=== PATIENT | female | born 1990 | race Caucasian/White ===

== ENCOUNTER → 2024-03-31 16:22 | Outpatient (REF) | payer BC, SELFPAY | LOC: PNTC 16:22 | PROVIDERS: ATTENDING PHYSICIAN Student in an Organized Health Care Education/Training Program | DX: Z36.0 Encounter for antenatal screening for chromosomal anomalies (principal); Z36.82 Encounter for antenatal screening for nuchal translucency | CPT/HCPCS: 76801; 76813 ==

== ENCOUNTER → 2024-04-26 15:57 | Outpatient (REF) | payer BC, SELFPAY | LOC: PNTC 15:57 | PROVIDERS: ATTENDING PHYSICIAN Student in an Organized Health Care Education/Training Program | DX: O09.819 Supervision of pregnancy resulting from assisted reproductive technology, unspecified trimester (principal); O10.119 Pre-existing hypertensive heart disease complicating pregnancy, unspecified trimester | CPT/HCPCS: 76805 ==

== ENCOUNTER → 2024-05-26 15:53 | Outpatient (REF) | payer BC, SELFPAY | LOC: PNTC 15:53 | PROVIDERS: ATTENDING PHYSICIAN Student in an Organized Health Care Education/Training Program | DX: O09.812 Supervision of pregnancy resulting from assisted reproductive technology, second trimester (principal); O10.012 Pre-existing essential hypertension complicating pregnancy, second trimester; O99.212 Obesity complicating pregnancy, second trimester; O35.5XX0 Maternal care for (suspected) damage to fetus by drugs, not applicable or unspecified; O99.282 Endocrine, nutritional and metabolic diseases complicating pregnancy, second trimester | CPT/HCPCS: 76811; 76817 ==

== ENCOUNTER → 2024-06-23 16:58 | Outpatient (REF) | payer BC, SELFPAY | LOC: PNTC 16:58 | PROVIDERS: ATTENDING PHYSICIAN Student in an Organized Health Care Education/Training Program | DX: O09.812 Supervision of pregnancy resulting from assisted reproductive technology, second trimester (principal); O10.012 Pre-existing essential hypertension complicating pregnancy, second trimester; O99.212 Obesity complicating pregnancy, second trimester; O35.5XX0 Maternal care for (suspected) damage to fetus by drugs, not applicable or unspecified; O99.282 Endocrine, nutritional and metabolic diseases complicating pregnancy, second trimester | CPT/HCPCS: 76816 ==

== ENCOUNTER → 2024-07-19 10:20 | Outpatient (REF) | payer BC, SELFPAY | LOC: PNTC 10:20 | PROVIDERS: ATTENDING PHYSICIAN Obstetrics & Gynecology | DX: O99.210 Obesity complicating pregnancy, unspecified trimester (principal); O09.819 Supervision of pregnancy resulting from assisted reproductive technology, unspecified trimester; O10.31 Pre-existing hypertensive heart and chronic kidney disease complicating pregnancy; O99.280 Endocrine, nutritional and metabolic diseases complicating pregnancy, unspecified trimester; O99.320 Drug use complicating pregnancy, unspecified trimester | CPT/HCPCS: 59025; 76816 ==

== ENCOUNTER → 2024-07-20 15:05 | Outpatient (REF) | payer BC, SELFPAY | LOC: PNTC 15:05 | PROVIDERS: ATTENDING PHYSICIAN Obstetrics & Gynecology | DX: Z34.92 Encounter for supervision of normal pregnancy, unspecified, second trimester (principal) | CPT/HCPCS: 36415; 86850; 86900; 86901; 96372; J2790 ==

== ENCOUNTER 2024-07-27 21:19 | Observation (INO) | payer BC, SELFPAY ==
[2024-07-27 21:39] VITALS: BP 128/77; BMI 39.7
[2024-07-27 22:32] LABS: Urine Albumin Negative (Neg - Trace); Urine Bilirubin Negative (Negative); Urine Character Clear (Clear); Urine Color Yellow; Urine Glucose Negative (Negative); Urine Ketone Negative (Negative); Urine Leukocyte Negative (Negative); Urine Nitrite Negative (Negative); Urine Occult Blood Negative (Negative); Urine Specific Gravity 1.005 (<1.030); Urine Urobilinogen Negative (Neg - 1+)
== END 2024-07-27 23:01 | disposition home or self-care (01) ==
LOC: LDRP 21:19
PROVIDERS: ADMITTING PHYSICIAN Obstetrics & Gynecology
DX: O26.893 Other specified pregnancy related conditions, third trimester (principal); Z3A.29 29 weeks gestation of pregnancy; R10.9 Unspecified abdominal pain
CPT/HCPCS: 81003; 87086; G0378

== ENCOUNTER → 2024-08-09 09:48 | Outpatient (REF) | payer BC, SELFPAY | LOC: PNTC 09:48 | PROVIDERS: ATTENDING PHYSICIAN Obstetrics & Gynecology | DX: O99.210 Obesity complicating pregnancy, unspecified trimester (principal); O09.819 Supervision of pregnancy resulting from assisted reproductive technology, unspecified trimester; O10.019 Pre-existing essential hypertension complicating pregnancy, unspecified trimester; O99.280 Endocrine, nutritional and metabolic diseases complicating pregnancy, unspecified trimester; O99.320 Drug use complicating pregnancy, unspecified trimester | CPT/HCPCS: 76816 ==

== ENCOUNTER 2024-08-17 16:16 | Observation (INO) | payer BC, SELFPAY ==
[2024-08-17 16:43] LABS: Hematocrit 36.1 % (37.0-47.0); Hemoglobin 12.6 g/dL (12.0-16.0); Mean Corp Hgb Conc. 34.9 g/dL (33.0-37.0); Mean Corpuscular Volume 80.8 fL (81.0-99.0); Platelet Count 263 10^3/uL (130-400); Red Cell Dist. Width 14.6 % (11.5-14.5)
[2024-08-17 16:44] LABS: Urine Character Clear (Clear)
[2024-08-17 16:52] LABS: Urine Red Blood Cell 0-2 /HPF (0-2)
[2024-08-17 17:01] LABS: ALT (SGPT) 35 U/L (0-35); AST (SGOT) 25 U/L (14-36); Albumin 3.6 g/dl (3.5-5.0); Alkaline Phosphatase 120 U/L (38-126); Blood Urea Nitrogen 9 mg/dl (7-17); Calcium 9.9 mg/dl (8.4-10.2); Carbon Dioxide 22 mmol/L (22-30); Chloride 109 mmol/L (98-107); Glucose 92 mg/dl (70-99); Potassium 4.0 mmol/L (3.5-5.1); Sodium 136 mmol/L (135-145); Total Protein 6.5 g/dl (6.3-8.2); eGFR > 60.00
== END 2024-08-17 17:15 | disposition home or self-care (01) ==
LOC: PNTC-IN 16:16
PROVIDERS: ADMITTING PHYSICIAN Obstetrics & Gynecology; ATTENDING PHYSICIAN Obstetrics & Gynecology
DX: O99.210 Obesity complicating pregnancy, unspecified trimester (principal); O10.019 Pre-existing essential hypertension complicating pregnancy, unspecified trimester; Z31.83 Encounter for assisted reproductive fertility procedure cycle; E03.9 Hypothyroidism, unspecified
CPT/HCPCS: 59025; 80053; 81003; 81015; 82570; 84156; 85027; G0378

== ENCOUNTER 2024-08-24 15:05 | Observation (INO) | payer BC, SELFPAY ==
[2024-08-24 16:40] VITALS: BP 144/91; BMI 40.8
[2024-08-24 16:41] LABS: Hematocrit 36.1 % (37.0-47.0); Hemoglobin 12.7 g/dL (12.0-16.0); Mean Corp Hgb Conc. 35.2 g/dL (33.0-37.0); Mean Corpuscular Volume 80.4 fL (81.0-99.0); Platelet Count 252 10^3/uL (130-400); Red Cell Dist. Width 14.9 % (11.5-14.5)
[2024-08-24 16:58] LABS: ALT (SGPT) 35 U/L (0-35); AST (SGOT) 27 U/L (14-36); Albumin 3.6 g/dl (3.5-5.0); Alkaline Phosphatase 133 U/L (38-126); Blood Urea Nitrogen 9 mg/dl (7-17); Calcium 9.9 mg/dl (8.4-10.2); Carbon Dioxide 21 mmol/L (22-30); Chloride 107 mmol/L (98-107); Estimated Creatinine Clearance > 125 ml/min; Glucose 94 mg/dl (70-99); Potassium 3.9 mmol/L (3.5-5.1); Sodium 133 mmol/L (135-145); Total Protein 6.6 g/dl (6.3-8.2); eGFR > 60.00
== END 2024-08-24 17:30 | disposition home or self-care (01) ==
LOC: PNTC-IN 15:05
PROVIDERS: ADMITTING PHYSICIAN Student in an Organized Health Care Education/Training Program
DX: O10.913 Unspecified pre-existing hypertension complicating pregnancy, third trimester (principal); Z3A.33 33 weeks gestation of pregnancy
CPT/HCPCS: 59025; 76815; 80053; 82570; 84156; 85027; G0378

== ENCOUNTER → 2024-08-26 08:27 | Outpatient (REF) | payer BC, SELFPAY | LOC: PNTC 08:27 | PROVIDERS: ATTENDING PHYSICIAN Obstetrics & Gynecology | DX: O14.90 Unspecified pre-eclampsia, unspecified trimester (principal) | CPT/HCPCS: 59025 ==

== ENCOUNTER 2024-08-29 22:06 | Observation (INO) | payer BC, SELFPAY ==
[2024-08-29 22:33] VITALS: BP 142/92; BMI 40.8
== END 2024-08-30 00:25 | disposition home or self-care (01) ==
LOC: LDRP 22:06
PROVIDERS: ADMITTING PHYSICIAN Obstetrics & Gynecology
DX: O36.8130 Decreased fetal movements, third trimester, not applicable or unspecified (principal); O99.283 Endocrine, nutritional and metabolic diseases complicating pregnancy, third trimester; E03.9 Hypothyroidism, unspecified; O10.013 Pre-existing essential hypertension complicating pregnancy, third trimester; Z3A.34 34 weeks gestation of pregnancy
CPT/HCPCS: 76815; G0378

== ENCOUNTER → 2024-08-30 17:01 | Outpatient (REF) | payer BC, SELFPAY | LOC: PNTC 17:01 | PROVIDERS: ATTENDING PHYSICIAN Obstetrics & Gynecology | DX: O14.00 Mild to moderate pre-eclampsia, unspecified trimester (principal) | CPT/HCPCS: 59025; 76816; 76818 ==

== ENCOUNTER → 2024-09-02 09:27 | Outpatient (REF) | payer BC, SELFPAY | LOC: PNTC 09:27 | PROVIDERS: ATTENDING PHYSICIAN Obstetrics & Gynecology | DX: O13.9 Gestational [pregnancy-induced] hypertension without significant proteinuria, unspecified trimester (principal) | CPT/HCPCS: 59025 ==

== ENCOUNTER → 2024-09-06 10:49 | Outpatient (REF) | payer BC, SELFPAY | LOC: PNTC 10:49 | PROVIDERS: ATTENDING PHYSICIAN Student in an Organized Health Care Education/Training Program | DX: O14.90 Unspecified pre-eclampsia, unspecified trimester (principal) | CPT/HCPCS: 59025 ==

== ENCOUNTER 2024-09-07 14:44 | Observation (INO) | payer BC, SELFPAY ==
[2024-09-07 15:14] VITALS: BP 135/87; BMI 40.8
[2024-09-07 15:20] LABS: Hematocrit 37.4 % (37.0-47.0); Hemoglobin 12.9 g/dL (12.0-16.0); Mean Corp Hgb Conc. 34.5 g/dL (33.0-37.0); Mean Corpuscular Volume 81.1 fL (81.0-99.0); Platelet Count 275 10^3/uL (130-400); Red Cell Dist. Width 14.8 % (11.5-14.5)
[2024-09-07 15:42] LABS: ALT (SGPT) 34 U/L (0-35); AST (SGOT) 24 U/L (14-36); Albumin 3.5 g/dl (3.5-5.0); Alkaline Phosphatase 156 U/L (38-126); Blood Urea Nitrogen 10 mg/dl (7-17); Calcium 9.3 mg/dl (8.4-10.2); Carbon Dioxide 21 mmol/L (22-30); Chloride 107 mmol/L (98-107); Estimated Creatinine Clearance > 125 ml/min; Glucose 96 mg/dl (70-99); Potassium 4.5 mmol/L (3.5-5.1); Sodium 132 mmol/L (135-145); Total Protein 6.5 g/dl (6.3-8.2); eGFR > 60.00
[2024-09-07 15:42] LABS: Urine Character Clear (Clear)
[2024-09-07 16:17] LABS: Urine Squamous Cell >30 /LPF (Few)
== END 2024-09-07 17:00 | disposition home or self-care (01) ==
LOC: PNTC-IN 14:44
PROVIDERS: ADMITTING PHYSICIAN Obstetrics & Gynecology
DX: O11.3 Pre-existing hypertension with pre-eclampsia, third trimester (principal); O10.913 Unspecified pre-existing hypertension complicating pregnancy, third trimester; Z3A.35 35 weeks gestation of pregnancy
CPT/HCPCS: 80053; 81003; 81015; 82570; 84156; 85027; G0378

== ENCOUNTER → 2024-09-09 10:51 | Outpatient (REF) | payer BC, SELFPAY | LOC: PNTC 10:51 | PROVIDERS: ATTENDING PHYSICIAN Student in an Organized Health Care Education/Training Program | DX: O99.210 Obesity complicating pregnancy, unspecified trimester (principal); O09.819 Supervision of pregnancy resulting from assisted reproductive technology, unspecified trimester; O10.019 Pre-existing essential hypertension complicating pregnancy, unspecified trimester; O99.280 Endocrine, nutritional and metabolic diseases complicating pregnancy, unspecified trimester; O99.320 Drug use complicating pregnancy, unspecified trimester | CPT/HCPCS: 59025; 76815 ==

== ENCOUNTER 2024-09-13 22:04 | Observation (INO) | payer BC, SELFPAY ==
[2024-09-13 22:23] VITALS: BP 153/89; BMI 40.8
[2024-09-13] MEDS: TRANDATE 300 MG PO (22:31)
== END 2024-09-14 00:05 | disposition home or self-care (01) ==
LOC: LDRP 22:04
PROVIDERS: ADMITTING PHYSICIAN Obstetrics & Gynecology
DX: O36.8130 Decreased fetal movements, third trimester, not applicable or unspecified (principal); O10.013 Pre-existing essential hypertension complicating pregnancy, third trimester; Z3A.36 36 weeks gestation of pregnancy
CPT/HCPCS: 36415; 59025; 76818; 86850; 86900; 86901

== ENCOUNTER 2024-09-16 11:59 | Inpatient (IN) | payer BC, SELFPAY ==
[2024-09-16 11:43] VITALS: BMI 40.8
[2024-09-16 11:45] VITALS: BP 136/96
[2024-09-16 12:32] LABS: Hematocrit 37.2 % (37.0-47.0); Hemoglobin 12.9 g/dL (12.0-16.0); Mean Corp Hgb Conc. 34.7 g/dL (33.0-37.0); Mean Corpuscular Volume 81.0 fL (81.0-99.0); Nucleated Red Blood Cells % 0 %; Platelet Count 254 10^3/uL (130-400); Red Cell Dist. Width 14.8 % (11.5-14.5)
[2024-09-16 12:42] LABS: ALT (SGPT) 31 U/L (0-35); AST (SGOT) 25 U/L (14-36); Albumin 3.5 g/dl (3.5-5.0); Alkaline Phosphatase 175 U/L (38-126); Blood Urea Nitrogen 7 mg/dl (7-17); Calcium 9.2 mg/dl (8.4-10.2); Carbon Dioxide 20 mmol/L (22-30); Chloride 109 mmol/L (98-107); Estimated Creatinine Clearance > 125 ml/min; Glucose 75 mg/dl (70-99); Potassium 4.5 mmol/L (3.5-5.1); Sodium 134 mmol/L (135-145); Total Protein 6.5 g/dl (6.3-8.2); eGFR > 60.00
[2024-09-16] MEDS: CYTOTEC 25 MICROGRAM VAG (13:34)
[2024-09-16] MEDS: TRANDATE 300 MG PO (19:59)
[2024-09-16] MEDS: LR 1000 IV (21:36)
[2024-09-16] MEDS: BICITRA 30 ML PO (21:37)
[2024-09-16] MEDS: ANCEF 15 MG IV (21:37)
[2024-09-16] MEDS: TYLENOL 975 MG PO (21:37)
[2024-09-16] MEDS: PITOCIN 30 UNITS/NSS 500 ML IV (23:28)
[2024-09-16] MEDS: TRANEXAMIC ACID 100 IV (23:46)
[2024-09-16] MEDS: METHERGINE INJECTION 0.2 MG IM (23:50)
[2024-09-17] MEDS: TORADOL 15 MG IV ×4 (04:05→21:23)
[2024-09-17] MEDS: PITOCIN 30 UNITS/NSS 500 ML IV (05:09)
[2024-09-17] MEDS: SYNTHROID 175 MCG PO (06:04)
[2024-09-17 06:45] LABS: Hematocrit 37.3 % (37.0-47.0); Hemoglobin 13.1 g/dL (12.0-16.0); Mean Corp Hgb Conc. 35.1 g/dL (33.0-37.0); Mean Corpuscular Volume 80.4 fL (81.0-99.0); Platelet Count 267 10^3/uL (130-400); Red Cell Dist. Width 14.7 % (11.5-14.5)
--- NOTE | 2024-09-17 07:10 | W.PN.ANS.POP ---
Anesthesia Post Operative
- Anesthesia Post Op Note
Vital Signs Stable-See Nursing Note: Yes
Airway Patent: Yes
Adequate Pain Control: Yes
Change in Mental Status: No
Current Postoperative Nausea & Vomiting: No
Anesthesia Complications: No
General Anesthetic Recall: No
Unplanned Admission: No
Post Op Hydration Adequate: Yes
- -
Pt doing well, awake and alert- resting comfortably with no anesthesia related c/o at time of post op visit.
[2024-09-17] MEDS: PRENATAL PLUS 1 TABLET PO (07:46)
[2024-09-17] MEDS: TRANDATE 300 MG PO ×2 (07:46→19:51)
[2024-09-17] MEDS: COLACE 100 MG PO ×2 (07:46→19:51)
[2024-09-17] MEDS: ZYRTEC PO (07:47)
[2024-09-17 13:55] LABS: Syphilis/T. pallidum Ab Reflex Negative (Negative)
[2024-09-17] MEDS: RHOGAM 300 MCG IM (16:43)
[2024-09-18] MEDS: TYLENOL 650 MG PO ×3 (06:08→20:21)
[2024-09-18] MEDS: SYNTHROID 175 MCG PO (06:08)
[2024-09-18] MEDS: MOTRIN 600 MG PO ×3 (06:08→20:21)
[2024-09-18] MEDS: COLACE 100 MG PO ×2 (08:24→19:59)
[2024-09-18] MEDS: PRENATAL PLUS 1 TABLET PO (08:24)
[2024-09-18] MEDS: TRANDATE 300 MG PO ×2 (08:24→19:59)
[2024-09-18] MEDS: ZYRTEC 10 MG PO (08:24)
[2024-09-19] MEDS: TYLENOL 650 MG PO (05:26)
[2024-09-19] MEDS: MOTRIN 600 MG PO (05:26)
[2024-09-19] MEDS: SYNTHROID 175 MCG PO (05:27)
[2024-09-19] MEDS: COLACE 100 MG PO (08:28)
[2024-09-19] MEDS: PRENATAL PLUS 1 TABLET PO (08:28)
[2024-09-19] MEDS: TRANDATE 300 MG PO (08:31)
[2024-09-19] MEDS: ZYRTEC 10 MG PO (08:54)
--- NOTE | 2024-09-20 05:15 | W.DS.TRANS ---
DC Summary - [employer]
-
Discharge Instructions:
Discharge Diagnosis/Procedures section, preeclampsia without severe
features
Diet No restrictions
Activity No strenuous activity
Driving Restrictions No driving for 2 weeks
Bathing Restrictions OK to Shower
Instructions:
Stand-Alone Forms: LDRP Delivery
LDRP Hypertensive Disorders
Changes to Home Medications: No
Discharge Medications:
DC Medications w/original date entered in [employer]
cetirizine 10 mg tablet (Zyrtec) 10 mg PO DAILY Allergies 07/12/22
omeprazole 40 mg capsule,delayed release 40 mg PO DAILY Gastrointestinal Issue 07/12/22
gfwscqir-vvl-Dk-FA 1 mg tablet 1 tab PO DAILY Supplement 07/12/22
Synthroid 175 mcg PO DAILY Thyroid 07/27/24
labetalol 300 mg PO BID Blood Pressure 07/27/24
acetaminophen 325 mg tablet 650 mg (2 x 325 mg) PO Q4HPRN PRN mild pain #1 tab 09/19/24
ibuprofen 600 mg tablet 600 mg PO Q6HPRN PRN cramps #60 tabs 09/19/24
Home Medication Changes
Pending Results: No
--- NOTE | 2024-09-20 05:15 | W.DCSUMMARY ---
Discharge Summary
Discharge Data
Date of Admission: 09/16/24
Date of Discharge: 09/19/24
-
Pending Results: No
Hospital Course
Patient is a 34yo who presented for her scheduled NST at 36.6 for chronic hypertension with superimposed preeclampsia without severe features. Her NST was non-reactive and BPP was 4/10. Induction of labor was recommended. She was closed on
admission. She was given one dose of Cytotec. After a couple hours, she continued to have a non-reactive tracing that was mostly category 2 with periods of moderate variability. Primary section was recommended for non-reassuring heart
tones. She underwent primary low transverse section on 09/16 delivering a viable female . The procedure was uncomplicated. The estimated blood loss was 900mL. Postoperatively, there was an increase in bleeding with clots expressed. TXA
and Methergine were given. On postop day one, she was doing well. Her hemoglobin was 13.1. Her taylor was removed. On postop day two, she was also doing well with no complaints. She was able to spontaneously void. On postop day three, she was meeting
all postop milestones. She was tolerating a regular diet, voiding spontaneously, and had no heavy lochia. She had no signs or symptoms of preeclampsia. She was discharged home after discussing discharged instructions and return precautions. She was
instructed to continue her home labetalol 300mg BID. Preeclampsia precautions were reviewed. She was instructed to follow up in 1 week for a BP check in the office.
Discharge Plan
-
Patient Disposition: Home (Routine Discharge)
Discharge Diagnosis/Procedures: section, preeclampsia without severe features
Condition: Good
Diet: No restrictions
Activity: No strenuous activity
Driving Restrictions: No driving for 2 weeks
Bathing Restrictions: OK to Shower
Activity Restrictions/Additional Instructions:
Check your BP twice per day. If your BP is 160/110, call the office. Also call if you have headaches not relieved by medication, changes in your vision, chest pain, shortness of breath or pain in the upper abdomen on the right side.
Stand Alone Forms: LDRP Delivery, LDRP Hypertensive Disorders
Referrals:
Nicolle Horta MD [Active, Gynecology] - in one week
UNKNOWN,NO INTERVIEW [Family Provider]
Prescriptions:
New
acetaminophen 325 mg Tablet
650 mg PO Q4HPRN PRN (Reason: mild pain) Qty: 1 0RF
ibuprofen 600 mg Tablet
600 mg PO Q6HPRN PRN (Reason: cramps) Qty: 60 0RF
Continued
cetirizine [Zyrtec] 10 mg Tablet
10 mg PO DAILY
omeprazole 40 mg Capsule,Delayed Release(Dr/Ec)
40 mg PO DAILY
sumujnhl-xwi-Cn-FA 1 mg Tablet
1 tab PO DAILY
Synthroid
175 mcg PO DAILY
labetalol
300 mg PO BID
Discontinued
aspirin 81 mg Tablet
81 mg PO DAILY
Discharge Orders:
Discharge Patient (As Directed); Ordered 09/19/24
Ordered By: Antoinette Clay
Discharge Date and Time
Discharge Date/Time: 09/19/24 12:00
Print Language: ARABIC
== END 2024-09-19 12:00 | disposition home or self-care (01) | DRG 788 ==
LOC: LDRP 11:59
PROVIDERS: ADMITTING PHYSICIAN Obstetrics & Gynecology; ATTENDING PHYSICIAN Student in an Organized Health Care Education/Training Program
PROC: 3E0234Z Introduction of Serum, Toxoid and Vaccine into Muscle, Percutaneous Approach (ICD-10-PCS; 2024-09-17)
PROC: 10D00Z1 Extraction of Products of Conception, Low, Open Approach (ICD-10-PCS; 2024-09-17)
DX: O14.14 Severe pre-eclampsia complicating childbirth (principal); O69.81X0 Labor and delivery complicated by cord around neck, without compression, not applicable or unspecified; Z3A.36 36 weeks gestation of pregnancy; Z37.0 Single live birth; O76 Abnormality in fetal heart rate and rhythm complicating labor and delivery
CPT/HCPCS: 59025; 76818; 80053; 82570; 84156; 85025; 85027; 85461; 86780; 86850; 86900; 86901; 88307; J2790

== ENCOUNTER 2024-09-21 13:01 | Emergency (ER) | payer BC, SELFPAY ==
[2024-09-21 13:04] VITALS: BP 165/104
[2024-09-21 13:31] LABS: Hematocrit 34.2 % (37.0-47.0); Hemoglobin 11.6 g/dL (12.0-16.0); Mean Corp Hgb Conc. 33.9 g/dL (33.0-37.0); Mean Corpuscular Volume 82.2 fL (81.0-99.0); Nucleated Red Blood Cells % 0 %; Platelet Count 322 10^3/uL (130-400); Red Cell Dist. Width 14.6 % (11.5-14.5)
[2024-09-21 13:42] LABS: ALT (SGPT) 50 U/L (0-35); AST (SGOT) 39 U/L (14-36); Albumin 3.6 g/dl (3.5-5.0); Alkaline Phosphatase 136 U/L (38-126); Blood Urea Nitrogen 11 mg/dl (7-17); Calcium 9.0 mg/dl (8.4-10.2); Carbon Dioxide 24 mmol/L (22-30); Chloride 108 mmol/L (98-107); Glucose 89 mg/dl (70-99); Potassium 4.3 mmol/L (3.5-5.1); Sodium 138 mmol/L (135-145); Total Protein 6.4 g/dl (6.3-8.2); eGFR > 60.00
[2024-09-21 13:48] LABS: COVID-19 Antigen Negative (Negative)
--- NOTE | 2024-09-21 13:50 | EDRN ---
Dr. Leos in w/ pt at this time.
[2024-09-21 13:54] LABS: Troponin I < 0.012 ng/ml
--- NOTE | 2024-09-21 13:59 | ED.GENMED ---
History of Present Illness
General
Chief Complaint: Breathing Problem
Time Seen by Provider: 09/21/24 13:37
History of Present Illness
History of Present Illness:
34-year-old female presents to the emergency department for evaluation of dry cough, shortness of breath, and scapular pain for the past 2 days. She is 5 days status post performed here due to preeclampsia. She reports vaginal bleeding
is well-controlled at this point she has no significant pain. Denies any fevers but does feel fatigued, she attributes this to being a mother of a . She reports shortness of breath when talking or when ambulating. No history of DVT or PE
Past History
Past History
ED Past Medical History: Other (Gallstones)
ED Past Surgical History: None
Social History
Tobacco: Non-smoker
Alcohol: Occasional
Drug: None
Personal:
Living: with family
Employment: Employed
Review of Systems
Review of Systems
Allergies reviewed?: Yes
All Other Systems: ROS reviewed and negative except as documented in HPI and ROS
Phy Exam
Physical Exam
Physical Exam:
GEN: Well appearing, NAD, WDWN
HEENT: Oral mucosa moist, no scleral icterus
Cardiac: Regular rate and rhythm, no murmurs
Lung: No respiratory distress, no tachypnea, lungs clear to auscultation bilaterally
MSK: No gross deformity or injuries
Skin: Good color, no pallor or jaundice, no rashes
Neuro: AO x3, moves all extremities freely
Psych: Calm, cooperative
Course
Orders/Labs/Results
Orders:
Orders
09/21/24 13:09
Electrocardiogram (*1) Urgent
Reason for Study: Shortness of Breath
EKG- Treatment ONCE
09/21/24 13:18
COVID-19 Antigen Urgent
Source: Nasal Swab
Complete Blood Count/With Diff Urgent
Comprehensive Metabolic Panel Urgent
Troponin I Urgent
Influenza A+B Rapid Molecular Urgent
BIANCA Source: Nasal Swab
Specimen Description:
09/21/24 13:55
CT Chest PE Study Urgent
Comment:
Reason For Exam: chest pain/SOB, post
Abnormal Lab Results
09/21/24
13:18
RBC 4.16 L 10^6/uL
(4.20-5.40)
Hgb 11.6 L g/dL
(12.0-16.0)
Hct 34.2 L %
(37.0-47.0)
RDW 14.6 H %
(11.5-14.5)
Abs Immat Gran (auto) 0.1 H 10^3/uL
(0-0.05)
Immature Gran % 1.1 H %
(0-0.5)
Lymphocytes % 19.7 L %
(20.5-51.1)
Chloride 108 H mmol/L
(98-107)
AST 39 H U/L
(14-36)
ALT 50 H U/L
(0-35)
Alkaline Phosphatase 136 H U/L
(38-126)
09/21/24 13:18
09/21/24 13:18
Vital Signs
Initial and Last Documented VS:
Initial Vital Signs
Temp Pulse Resp BP Pulse Ox
98.5 F 86 18 165/104 96
09/21/24 13:04 09/21/24 13:04 09/21/24 13:04 09/21/24 13:04 09/21/24 13:04
Last Documented Vital Signs
Temp Pulse Resp BP Pulse Ox
98.5 F 73 17 127/105 97
09/21/24 13:04 09/21/24 15:30 09/21/24 15:30 09/21/24 15:24 09/21/24 15:30
MDM/Problems Addressed
MDM/Problems Addressed:
PE study unremarkable. No e/o infectious etiology. Likely viral syndrome
Comment
Comment:
EKG independently interpreted by me shows normal sinus rhythm at a rate of [address] or T changes concerning for ischemia
*Pulse Oximetry
SaO2: 96
Oxygen Mode of Delivery: Room air
Patient hypoxic: no
*Critical Care Note
Total Time (30-74mins, 75-104mins- exclusive of procedures): Not Applicable
ED Attending Note
-
Portions of this chart may have been created with voice recognition software.� Occasional wrong word or��sound alike� substitutions may have occurred due to the inherent limitations of voice recognition software.
Discharge Plan
Departure
Patient Disposition: Home (Routine Discharge)
Date of Disposition: 09/21/24
Time of Disposition: 15:37
Patient with high blood pressure during this ER visit?: No
Discharge Problem:
Shortness of breath
Instructions: Shortness of Breath (Dyspnea) (DC)
Prescriptions:
No Action
cetirizine [Zyrtec] 10 mg Tablet
10 mg PO DAILY
omeprazole 40 mg Capsule,Delayed Release(Dr/Ec)
40 mg PO DAILY
olyswanp-eoz-So-FA 1 mg Tablet
1 tab PO DAILY
acetaminophen 325 mg Tablet
650 mg PO Q4HPRN PRN (Reason: mild pain) Qty: 1 0RF
ibuprofen 600 mg Tablet
600 mg PO Q6HPRN PRN (Reason: cramps) Qty: 60 0RF
Synthroid
175 mcg PO DAILY
labetalol
300 mg PO BID
Referrals:
Arsalan Valerio MD [Family Provider, Internal Medicine]
Activity Restrictions/Additional Instructions:
Follow up with your primary doctor or OBGYN if symptoms continue
There is no risk of iodine contrast (given to your for your CT scan) and , as very little contrast is excreted in breast milk, and what is excreted is poorly absorbed by your child's stomach
Interventions
Interventions:
*Risk Screen - Suicide Last Done: 09/21/24 13:04
*General Assessment Last Done: 09/21/24 13:04
*Neglect/Abuse Screening Last Done: 09/21/24 13:04
*Nursing Disposition Last Done: 09/21/24 15:56
ED- Cardiac Assessment Last Done: 09/21/24 14:52
ED- Pulmonary Assessment Last Done: 09/21/24 15:55
Discharge Date and Time
Discharge Date/Time: 09/21/24 15:57
Print Language: IRISH
[2024-09-21 15:24] VITALS: BP 127/105
== END 2024-09-21 15:57 | disposition home or self-care (01) ==
LOC: EMR 13:01
PROVIDERS: Emergency Medicine; EMERGENCY PHYSICIAN Emergency Medicine; FAMILY PHYSICIAN Internal Medicine
DX: O90.89 Other complications of the puerperium, not elsewhere classified (principal); R06.02 Shortness of breath; R05.9 Cough, unspecified; R53.83 Other fatigue; M25.519 Pain in unspecified shoulder; Z11.52 Encounter for screening for COVID-19
CPT/HCPCS: 99284; 71275; 80053; 84484; 85025; 87502; 87811; 93005; Q9967